=== PATIENT | female | born 1930 | race Caucasian/White ===

== ENCOUNTER 2020-11-15 20:28 | Inpatient (IN) ==
[2020-11-15] MEDS ORDERED: Al Hydrox/Mg Hydrox/Simet LIQ 30 ML UDC PO PRN (22:22)
[2020-11-15] MEDS ORDERED: Morphine 2 MG/ML SYRINGE IV PRN (22:26)
[2020-11-15] MEDS ORDERED: NS 0.9% 1000 ml BAG 1,000 ML IV SCH (22:30)
[2020-11-15 22:53] LABS: Creatine Kinase 1714 U/L (10-223)
[2020-11-15 23:00] LABS: Troponin I 0.06 ng/mL (<0.03)
[2020-11-16] MEDS: Heparin 5000 UNITS/ML 1 mL VIAL SUBCUT SCH ×4 (00:25→20:49)
[2020-11-16 00:37] LABS: Cholesterol 204 mg/dL; HDL Cholesterol 67.7 mg/dL; LDL Cholesterol 125 mg/dL; Triglycerides 55 mg/dL
[2020-11-16 01:13] LABS: Urine Appearance Cloudy; Urine Bilirubin Negative (Negative); Urine Blood 2+ (Negative); Urine Color Yellow; Urine Glucose Negative (Negative); Urine Ketones Trace (Negative); Urine Nitrite Negative (Negative); Urine Protein 1+(30 mg/dL) (Negative); Urine Specific Gravity 1.024 (1.002-1.030); Urine Urobilinogen Negative (Negative)
[2020-11-16 01:24] LABS: Urine Bacteria Absent (Absent); Urine Red Blood Cell 2+(6-10/hpf) (Absent); Urine Squamous Epithelial Cell Present (Absent); Urine White Blood Cell 3+(>20/hpf) (Absent)
[2020-11-16 08:27] LABS: ABS Basophils 0.1 10^3/ul (0-0.2); ABS Lymphocytes 1.2 10^3/ul (1.0-4.8); ABS Monocytes 0.8 10^3/ul (0-0.8); ABS Neutrophils 8.6 10^3/ul (1.5-7.7); Hematocrit 34 % (35-47); Hemoglobin 11.7 g/dL (12.0-16.0); Lymphocyte % 10.9 %; Mean Corpuscular HGB Conc 34 g/dL (31-36); Mean Corpuscular Hemoglobin 32 pg (27-31); Mean Corpuscular Volume 95 fL (80-97); Mean Platelet Volume 8.1 fL (7.4-10.4); Platelet Count 200 10^3/uL (150-450); Red Blood Count 3.63 10^6 /uL (3.70-4.87); Red Cell Distribution Width 14 % (10-15); White Blood Count 10.5 10^3/uL (3.5-10.8)
[2020-11-16 08:44] LABS: ALT 20 U/L (7-52); AST 54 U/L (13-39); Albumin 3.4 g/dL (3.2-5.2); Albumin/Globulin Ratio 1.3 (1-3); Alkaline Phosphatase 71 U/L (35-149); Anion Gap 8 mmol/L (2-11); Blood Urea Nitrogen 27 mg/dL (6-24); CO2 Carbon Dioxide 23 mmol/L (22-32); Calcium 8.6 mg/dL (8.6-10.3); Chloride 105 mmol/L (101-111); EGFR African American 66.5 (>60); Globulin 2.7 g/dL (2-4); Glucose 97 mg/dL (70-100); Potassium 3.6 mmol/L (3.5-5.0); Sodium 136 mmol/L (135-145); Total Protein 6.1 g/dL (6.4-8.9)
[2020-11-16 08:48] LABS: Troponin I 0.05 ng/mL (<0.03)
[2020-11-16 15:08] LABS: Creatine Kinase 1480 U/L (10-223)
[2020-11-17] MEDS: Heparin 5000 UNITS/ML 1 mL VIAL SUBCUT SCH (05:47)
[2020-11-17 06:39] LABS: Hematocrit 36 % (35-47); Mean Corpuscular HGB Conc 34 g/dL (31-36); Mean Corpuscular Hemoglobin 32 pg (27-31); Mean Corpuscular Volume 94 fL (80-97); Mean Platelet Volume 7.9 fL (7.4-10.4); Platelet Count 218 10^3/uL (150-450); Red Blood Count 3.83 10^6 /uL (3.70-4.87); Red Cell Distribution Width 14 % (10-15); White Blood Count 9.5 10^3/uL (3.5-10.8)
[2020-11-17 06:50] LABS: INR 1.23 (0.82-1.09)
[2020-11-17 06:56] LABS: Albumin 3.4 g/dL (3.2-5.2); Albumin/Globulin Ratio 1.2 (1-3); Calcium 8.8 mg/dL (8.6-10.3); EGFR African American 66.5 (>60); Globulin 2.9 g/dL (2-4); Potassium 3.4 mmol/L (3.5-5.0); Total Bilirubin 0.9 mg/dL (0.2-1.0); Total Protein 6.3 g/dL (6.4-8.9)
[2020-11-17] MEDS: Lactated Ringers 1000 ml BAG 1,000 ML IV SCH ×2 (09:47→20:48)
[2020-11-17] MEDS: KCL 20 MEQ/100 ML IVPREMIX 20 MEQ/100 ML BAG IV SCH (10:12)
[2020-11-17] MEDS ORDERED: Propofol 10 MG/ML 20 ML BTL ONE (10:37)
[2020-11-17] MEDS ORDERED: Lidocaine 2% PF 5 ML VIAL ONE (10:38)
[2020-11-17] MEDS ORDERED: fentaNYL 250 mcg/5 ml 50 MCG/ML 5 ml VIAL (250 MCG) ONE (10:40)
[2020-11-17] MEDS ORDERED: Ketamine HCL 50 mg/ml 10 ml VIAL (500 MG) ONE (10:40)
[2020-11-17] MEDS ORDERED: Rocuronium 50 mg VIAL 10 mg/ml 5 ml VIAL (50 mg) ONE ×2 (10:42→13:52)
[2020-11-17] MEDS ORDERED: ceFAZolin 2 GM PREMIX 2 GM/50 ML BAG ONE (11:55)
[2020-11-17] MEDS ORDERED: Vancomycin 1,000 MG VIAL ONE ×2 (11:59→12:06)
[2020-11-17] MEDS ORDERED: Succinylcholine 200 mg VIAL 20 mg/ml 10 ml VIAL (200 mg) ONE (12:11)
[2020-11-17] MEDS ORDERED: Dexamethasone IV 4 MG/ML VIAL 1 ml VIAL ONE ×2 (12:57→14:02)
[2020-11-17] MEDS ORDERED: Bupivacaine 0.5% SDV PF 30ML VIAL ONE (12:57)
[2020-11-17] MEDS ORDERED: Ondansetron 4 mg VIAL 2 MG/ML 2 ml VIAL ONE (14:02)
[2020-11-17] MEDS ORDERED: Labetalol IV 5 MG/ML 20 ml VIAL ONE (14:31)
[2020-11-17] MEDS ORDERED: Acetaminophen IV 1 GM/100ML 100 ML IV ONE (16:10)
[2020-11-17] MEDS ORDERED: HYDROmorphone 1 MG/1 ML SYRINGE ONE (17:11)
[2020-11-17 18:47] LABS: Urine Appearance Cloudy; Urine Bilirubin Negative (Negative); Urine Blood 2+ (Negative); Urine Color Yellow; Urine Glucose Negative (Negative); Urine Ketones 1+ (Negative); Urine Nitrite Negative (Negative); Urine Protein Negative (Negative); Urine Specific Gravity 1.016 (1.002-1.030); Urine Urobilinogen Negative (Negative)
[2020-11-17 18:54] LABS: Urine Bacteria Absent (Absent); Urine Red Blood Cell Trace(0-2/hpf) (Absent); Urine White Blood Cell Absent (Absent)
[2020-11-17 21:43] LABS: Hematocrit 33 % (35-47); Hemoglobin 10.6 g/dL (12.0-16.0)
[2020-11-17] MEDS: ceFAZolin 1 GM X 3 DOSES POST-OP Q8H (AddVan) IVPB SCH (22:03)
[2020-11-18] MEDS: KCL 20 MEQ/100 ML IVPREMIX 20 MEQ/100 ML BAG IV SCH (00:42)
[2020-11-18] MEDS ORDERED: Potassium Chlor 20 meq TAB.ER PO ONE (01:00)
[2020-11-18] MEDS: ceFAZolin 1 GM X 3 DOSES POST-OP Q8H (AddVan) IVPB SCH ×2 (06:12→13:50)
[2020-11-18 06:53] LABS: ABS Lymphocytes 0.9 10^3/ul (1.0-4.8); ABS Monocytes 1.3 10^3/ul (0-0.8); ABS Neutrophils 10.1 10^3/ul (1.5-7.7); Hematocrit 29 % (35-47); Hemoglobin 9.9 g/dL (12.0-16.0); Lymphocyte % 7.4 %; Mean Corpuscular HGB Conc 34 g/dL (31-36); Mean Corpuscular Hemoglobin 32 pg (27-31); Mean Corpuscular Volume 95 fL (80-97); Platelet Count 210 10^3/uL (150-450); Red Cell Distribution Width 13 % (10-15); White Blood Count 12.4 10^3/uL (3.5-10.8)
[2020-11-18 07:07] LABS: C Reactive Protein 170.57 mg/L (<8.01); Calcium 8.1 mg/dL (8.6-10.3); EGFR African American 70.8 (>60); EGFR Non-African American 58.5 (>60); Magnesium 1.7 mg/dL (1.9-2.7); Potassium 4.5 mmol/L (3.5-5.0)
[2020-11-18] MEDS ORDERED: Magnesium Sulfate 2 gm BAG 2 GM/50 ML BAG IVPB ONE (10:14)
[2020-11-18 11:15] LABS: TSH Ultra Thyroid Stim Horm 1.53 mcIU/mL (0.34-5.60)
[2020-11-18] MEDS: Enoxaparin 30 MG/0.3 ML SYR SUBCUT SCH (11:24)
[2020-11-18] MEDS ORDERED: Magnesium Hydroxide LIQ 30 ML UDC PO PRN (12:27)
[2020-11-18] MEDS ORDERED: Polyethylene Glycol 3350 17 GM PACKET PO PRN (12:28)
[2020-11-18] MEDS ORDERED: Lactated Ringers 1000 ml BAG 1,000 ML IV SCH (16:00)
[2020-11-18 18:51] LABS: Hematocrit 33 % (35-47); Hemoglobin 10.5 g/dL (12.0-16.0); Mean Corpuscular HGB Conc 32 g/dL (31-36); Mean Corpuscular Hemoglobin 31 pg (27-31); Mean Corpuscular Volume 98 fL (80-97); Mean Platelet Volume 8.1 fL (7.4-10.4); Platelet Count 175 10^3/uL (150-450); Red Blood Count 3.35 10^6 /uL (3.70-4.87); Red Cell Distribution Width 14 % (10-15)
[2020-11-19] MEDS: Enoxaparin 30 MG/0.3 ML SYR SUBCUT SCH (12:33)
[2020-11-19 19:52] LABS: Hematocrit 24 % (35-47); Hemoglobin 7.9 g/dL (12.0-16.0); Mean Corpuscular HGB Conc 33 g/dL (31-36); Mean Corpuscular Hemoglobin 31 pg (27-31); Mean Corpuscular Volume 95 fL (80-97); Mean Platelet Volume 7.9 fL (7.4-10.4); Platelet Count 198 10^3/uL (150-450); Red Blood Count 2.53 10^6 /uL (3.70-4.87); Red Cell Distribution Width 14 % (10-15); White Blood Count 9.3 10^3/uL (3.5-10.8)
[2020-11-19 20:14] LABS: Calcium 7.5 mg/dL (8.6-10.3); EGFR African American 79.8 (>60); EGFR Non-African American 65.9 (>60); Magnesium 1.9 mg/dL (1.9-2.7); Potassium 4.2 mmol/L (3.5-5.0)
[2020-11-20] MEDS: Enoxaparin 30 MG/0.3 ML SYR SUBCUT SCH (12:47)
[2020-11-20 15:00] LABS: ABS Lymphocytes 0.9 10^3/ul (1.0-4.8); ABS Monocytes 0.6 10^3/ul (0-0.8); ABS Neutrophils 6.8 10^3/ul (1.5-7.7); Eosinophil % 0.5 %; Hematocrit 33 % (35-47); Hemoglobin 11.3 g/dL (12.0-16.0); Lymphocyte % 10.6 %; Mean Corpuscular HGB Conc 34 g/dL (31-36); Mean Corpuscular Hemoglobin 31 pg (27-31); Mean Corpuscular Volume 93 fL (80-97); Mean Platelet Volume 7.8 fL (7.4-10.4); Nucleated Red Blood Cells % 0.1; Platelet Count 225 10^3/uL (150-450); Red Cell Distribution Width 15 % (10-15); White Blood Count 8.3 10^3/uL (3.5-10.8)
[2020-11-20 15:18] LABS: Calcium 8.1 mg/dL (8.6-10.3); EGFR African American 76.6 (>60); EGFR Non-African American 63.3 (>60); Potassium 3.9 mmol/L (3.5-5.0)
[2020-11-20 16:29] LABS: % Iron Saturation 29 % (15-55); Iron 53 ug/dL (50-212); Total Iron Binding Capacity 185 mcg/dL (250-450); Transferrin 132 mg/dL (203-362); Unsaturated Iron Binding < 170 ug/dL
[2020-11-20 16:48] LABS: Ferritin 601.7 ng/mL (11-307)
[2020-11-21 04:49] LABS: ABS Basophils 0.1 10^3/ul (0-0.2); ABS Eosinophils 0.2 10^3/ul (0-0.6); ABS Lymphocytes 1.6 10^3/ul (1.0-4.8); ABS Monocytes 0.8 10^3/ul (0-0.8); ABS Neutrophils 6.5 10^3/ul (1.5-7.7); Hematocrit 32 % (35-47); Hemoglobin 10.8 g/dL (12.0-16.0); Mean Corpuscular HGB Conc 34 g/dL (31-36); Mean Corpuscular Hemoglobin 31 pg (27-31); Mean Corpuscular Volume 93 fL (80-97); Mean Platelet Volume 7.7 fL (7.4-10.4); Platelet Count 254 10^3/uL (150-450); Red Blood Count 3.46 10^6 /uL (3.70-4.87); Red Cell Distribution Width 15 % (10-15); White Blood Count 9.2 10^3/uL (3.5-10.8)
[2020-11-21 05:09] LABS: EGFR African American 75.5 (>60); EGFR Non-African American 62.4 (>60); Potassium 4.2 mmol/L (3.5-5.0)
[2020-11-21] MEDS: Enoxaparin 30 MG/0.3 ML SYR SUBCUT SCH (11:26)
[2020-11-22 05:35] LABS: Hematocrit 33 % (35-47); Mean Platelet Volume 7.7 fL (7.4-10.4); Platelet Count 313 10^3/uL (150-450)
[2020-11-22] MEDS: Enoxaparin 30 MG/0.3 ML SYR SUBCUT SCH (12:21)
[2020-11-23] MEDS: Enoxaparin 30 MG/0.3 ML SYR SUBCUT SCH (11:42)
[2020-11-24] MEDS: Enoxaparin 30 MG/0.3 ML SYR SUBCUT SCH (10:58)
[2020-11-25] MEDS: Enoxaparin 30 MG/0.3 ML SYR SUBCUT SCH (11:42)
[2020-11-26 07:05] VITALS: BP 172/61
== END 2020-11-26 09:11 | DRG 469 ==
LOC: ED 20:28 → MEDTELE 11-16 02:22 → SSU 11-17 11:47
PROVIDERS: ADMIT Hospitalist; ATTEND Internal Medicine

== ENCOUNTER 2021-01-16 13:57 | Inpatient (IN) ==
[2021-01-16] MEDS ORDERED: Morphine 2 MG/ML SYRINGE IV PRN ×2 (14:11→18:12)
[2021-01-16 16:04] LABS: ABS Basophils 0.1 10^3/ul (0-0.2); ABS Lymphocytes 0.8 10^3/ul (1.0-4.8); ABS Monocytes 0.5 10^3/ul (0-0.8); ABS Neutrophils 12.4 10^3/ul (1.5-7.7); Eosinophil % 0.1 %; Hematocrit 34 % (35-47); Hemoglobin 11.1 g/dL (12.0-16.0); Lymphocyte % 5.5 %; Mean Corpuscular HGB Conc 32 g/dL (31-36); Mean Corpuscular Hemoglobin 31 pg (27-31); Mean Corpuscular Volume 95 fL (80-97); Mean Platelet Volume 7.5 fL (7.4-10.4); Platelet Count 285 10^3/uL (150-450); Red Cell Distribution Width 15 % (10-15); White Blood Count 13.7 10^3/uL (3.5-10.8)
[2021-01-16 16:21] LABS: Albumin 3.9 g/dL (3.2-5.2); Albumin/Globulin Ratio 1.2 (1-3); Calcium 9.1 mg/dL (8.6-10.3); EGFR African American 55.6 (>60); EGFR Non-African American 45.9 (>60); Globulin 3.3 g/dL (2-4); Potassium 4.2 mmol/L (3.5-5.0); Total Bilirubin 0.6 mg/dL (0.2-1.0); Total Protein 7.2 g/dL (6.4-8.9)
[2021-01-16 16:26] LABS: Activated Partial Thrombo Time 27.1 seconds (26.0-38.0); INR 1.29 (0.86-1.15)
[2021-01-16] MEDS ORDERED: Lactated Ringers 1000 ml BAG 1,000 ML IV ONE (18:15)
[2021-01-16] MEDS: Morphine 2 MG/ML SYRINGE IV PRN (20:54)
[2021-01-16] MEDS: Heparin 5000 UNITS/ML 1 mL VIAL SUBCUT SCH (23:37)
[2021-01-17 06:06] LABS: ABS Basophils 0.1 10^3/ul (0-0.2); ABS Lymphocytes 1.5 10^3/ul (1.0-4.8); ABS Monocytes 0.7 10^3/ul (0-0.8); ABS Neutrophils 7.2 10^3/ul (1.5-7.7); Hematocrit 29 % (35-47); Hemoglobin 9.6 g/dL (12.0-16.0); Lymphocyte % 15.6 %; Mean Corpuscular HGB Conc 33 g/dL (31-36); Mean Corpuscular Hemoglobin 32 pg (27-31); Mean Corpuscular Volume 95 fL (80-97); Mean Platelet Volume 7.2 fL (7.4-10.4); Platelet Count 242 10^3/uL (150-450); Red Blood Count 3.04 10^6 /uL (3.70-4.87); Red Cell Distribution Width 15 % (10-15); White Blood Count 9.5 10^3/uL (3.5-10.8)
[2021-01-17 06:15] LABS: INR 1.25 (0.86-1.15)
[2021-01-17 06:26] LABS: Calcium 8.3 mg/dL (8.6-10.3); EGFR African American 67.2 (>60); EGFR Non-African American 55.5 (>60); Magnesium 1.9 mg/dL (1.9-2.7)
[2021-01-17] MEDS: Heparin 5000 UNITS/ML 1 mL VIAL SUBCUT SCH ×3 (06:26→21:05)
[2021-01-17] MEDS ORDERED: Calcium (OSCAL) 500 mg TAB PO ONE (12:21)
[2021-01-17] MEDS: Morphine 2 MG/ML SYRINGE IV PRN (14:08)
[2021-01-17 16:03] LABS: Urine Appearance Clear; Urine Bilirubin Negative (Negative); Urine Blood 1+ (Negative); Urine Color Yellow; Urine Glucose Negative (Negative); Urine Ketones Negative (Negative); Urine Nitrite Positive (Negative); Urine Protein Negative (Negative); Urine Specific Gravity 1.008 (1.002-1.030); Urine Urobilinogen Negative (Negative)
[2021-01-17 16:14] LABS: Urine Bacteria Absent (Absent); Urine Red Blood Cell Trace(0-2/hpf) (Absent); Urine Squamous Epithelial Cell Present (Absent); Urine White Blood Cell Trace(0-5/hpf) (Absent)
[2021-01-18] MEDS: Morphine 2 MG/ML SYRINGE IV PRN ×2 (05:27→13:54)
[2021-01-18] MEDS: Heparin 5000 UNITS/ML 1 mL VIAL SUBCUT SCH ×3 (05:27→23:50)
[2021-01-18 06:04] LABS: Hematocrit 29 % (35-47); Hemoglobin 9.7 g/dL (12.0-16.0); Mean Corpuscular HGB Conc 34 g/dL (31-36); Mean Corpuscular Hemoglobin 32 pg (27-31); Mean Corpuscular Volume 94 fL (80-97); Mean Platelet Volume 7.7 fL (7.4-10.4); Platelet Count 232 10^3/uL (150-450); Red Blood Count 3.06 10^6 /uL (3.70-4.87); Red Cell Distribution Width 14 % (10-15); White Blood Count 8.5 10^3/uL (3.5-10.8)
[2021-01-18 06:18] LABS: Calcium 8.1 mg/dL (8.6-10.3); EGFR African American 70.6 (>60); EGFR Non-African American 58.3 (>60); Phosphorus 2.4 mg/dL (2.5-5.0); Potassium 3.5 mmol/L (3.5-5.0)
[2021-01-18 07:24] LABS: Magnesium 1.9 mg/dL (1.9-2.7)
[2021-01-18] MEDS ORDERED: Potassium Chlor 20 meq TAB.ER PO ONE (12:43)
[2021-01-18] MEDS: Potassium & Sodium Phos 250 mg = 1 PACKET PO SCH (23:50)
[2021-01-19 06:19] LABS: Hematocrit 26 % (35-47); Hemoglobin 8.8 g/dL (12.0-16.0); Mean Corpuscular HGB Conc 33 g/dL (31-36); Mean Corpuscular Hemoglobin 31 pg (27-31); Mean Corpuscular Volume 94 fL (80-97); Mean Platelet Volume 7.9 fL (7.4-10.4); Platelet Count 209 10^3/uL (150-450); Red Blood Count 2.79 10^6 /uL (3.70-4.87); Red Cell Distribution Width 15 % (10-15); White Blood Count 7.8 10^3/uL (3.5-10.8)
[2021-01-19 06:24] LABS: INR 1.21 (0.86-1.15)
[2021-01-19 06:32] LABS: Calcium 7.8 mg/dL (8.6-10.3); EGFR African American 70.6 (>60); EGFR Non-African American 58.3 (>60); Magnesium 1.9 mg/dL (1.9-2.7); Potassium 3.8 mmol/L (3.5-5.0)
[2021-01-19] MEDS ORDERED: Magnesium Sulfate IV 1GM/100ML 1 GM/100 ML BAG IV ONE (06:58)
[2021-01-19] MEDS ORDERED: CALCIUM GLUCONATE 1GM/50ML NS 1 GM/50 ML BAG IV ONE (06:58)
[2021-01-19] MEDS: Morphine 2 MG/ML SYRINGE IV PRN ×2 (08:18→21:35)
[2021-01-19] MEDS: Potassium & Sodium Phos 250 mg = 1 PACKET PO SCH (10:04)
[2021-01-19] MEDS ORDERED: Lidocaine 1% w EPI 1:200,000 SDV 30 ML VIAL ONE (11:29)
[2021-01-19] MEDS ORDERED: Bupivacaine 0.5% SDV PF 30ML VIAL ONE ×2 (11:30→12:11)
[2021-01-19] MEDS ORDERED: Vancomycin 1,000 MG VIAL ONE (11:30)
[2021-01-19] MEDS ORDERED: Propofol 10 MG/ML 20 ML BTL ONE ×2 (12:01→14:30)
[2021-01-19] MEDS ORDERED: fentaNYL 100 mcg/2 ml 50 MCG/ML VIAL ONE (12:01)
[2021-01-19] MEDS ORDERED: ceFAZolin 2 GM in NS PREMIX 2 GM/100 ML BAG IVPB ONE (12:29)
[2021-01-19] MEDS ORDERED: Phenylephrine 40 mcg/mL 10mL (400mcg) SYRINGE ONE (13:05)
[2021-01-19] MEDS ORDERED: EPHEDrine (Pressors) 50 MG/ML VIAL ONE (13:19)
[2021-01-19] MEDS ORDERED: Ondansetron 4 mg VIAL 2 MG/ML 2 ml VIAL IV PRN (14:00)
[2021-01-19] MEDS ORDERED: HYDROcodone/ACETAMIN 5/325 mg TAB PO PRN (14:00)
[2021-01-19] MEDS ORDERED: Naloxone 0.4 mg VIAL 0.4 mg/ml 1 ml VIAL IV PRN (14:00)
[2021-01-19] MEDS ORDERED: Metoclopramide 5 MG/ML VIAL (10 mg) IV PRN (14:00)
[2021-01-19] MEDS: Cefepime 1 GM in Dextrose 1 GM/50 ML BAG IV SCH (18:29)
[2021-01-19 20:17] LABS: ABS Lymphocytes 0.7 10^3/ul (1.0-4.8); ABS Monocytes 0.8 10^3/ul (0-0.8); Eosinophil % 0.3 %; Hematocrit 26 % (35-47); Hemoglobin 8.7 g/dL (12.0-16.0); Mean Corpuscular HGB Conc 33 g/dL (31-36); Mean Corpuscular Hemoglobin 32 pg (27-31); Mean Corpuscular Volume 95 fL (80-97); Mean Platelet Volume 7.6 fL (7.4-10.4); Platelet Count 246 10^3/uL (150-450); Red Blood Count 2.77 10^6 /uL (3.70-4.87); Red Cell Distribution Width 15 % (10-15); White Blood Count 11.5 10^3/uL (3.5-10.8)
[2021-01-19] MEDS ORDERED: ceFAZolin 1 GM X 3 DOSES POST-OP Q8H (AddVan) IVPB SCH (21:00)
[2021-01-20] MEDS: Morphine 2 MG/ML SYRINGE IV PRN ×2 (01:07→21:11)
[2021-01-20] MEDS: Cefepime 1 GM in Dextrose 1 GM/50 ML BAG IV SCH ×2 (05:29→17:59)
[2021-01-20] MEDS ORDERED: Buffered Lidocaine 1% SYRIN 1 ml INTRADERM ONE (06:00)
[2021-01-20] MEDS ORDERED: Lactated Ringers 1000 ml BAG 1,000 ML IV SCH (06:00)
[2021-01-20 06:10] LABS: ABS Lymphocytes 1.2 10^3/ul (1.0-4.8); ABS Monocytes 1.2 10^3/ul (0-0.8); ABS Neutrophils 8.6 10^3/ul (1.5-7.7); Eosinophil % 0.1 %; Hematocrit 23 % (35-47); Hemoglobin 7.6 g/dL (12.0-16.0); Lymphocyte % 11.1 %; Mean Corpuscular HGB Conc 33 g/dL (31-36); Mean Corpuscular Hemoglobin 31 pg (27-31); Mean Corpuscular Volume 95 fL (80-97); Mean Platelet Volume 7.8 fL (7.4-10.4); Platelet Count 228 10^3/uL (150-450); Red Blood Count 2.46 10^6 /uL (3.70-4.87); Red Cell Distribution Width 15 % (10-15); White Blood Count 11.1 10^3/uL (3.5-10.8)
[2021-01-20 06:35] LABS: Anion Gap 10 mmol/L (2-11); Blood Urea Nitrogen 23 mg/dL (6-24); CO2 Carbon Dioxide 25 mmol/L (22-32); Calcium 7.8 mg/dL (8.6-10.3); Chloride 103 mmol/L (101-111); EGFR African American 69.7 (>60); EGFR Non-African American 57.6 (>60); Glucose 133 mg/dL (70-100); Magnesium 1.9 mg/dL (1.9-2.7); Potassium 4.6 mmol/L (3.5-5.0); Sodium 138 mmol/L (135-145)
[2021-01-20] MEDS ORDERED: CALCIUM GLUCONATE 1GM/50ML NS 1 GM/50 ML BAG IV ONE (07:02)
[2021-01-20] MEDS ORDERED: Magnesium Sulfate IV 1GM/100ML 1 GM/100 ML BAG IV ONE (07:02)
[2021-01-20 11:01] LABS: Total Iron Binding Capacity 193 mcg/dL (250-450); Transferrin 138 mg/dL (203-362)
[2021-01-20 11:05] LABS: % Iron Saturation 10 % (15-55); Iron < 20 ug/dL (50-212); Unsaturated Iron Binding < 178 ug/dL
[2021-01-20] MEDS: Enoxaparin 40 MG/0.4 ML SYR SUBCUT SCH (12:44)
[2021-01-20 15:02] LABS: ABS Basophils 0.1 10^3/ul (0-0.2); ABS Lymphocytes 1.5 10^3/ul (1.0-4.8); ABS Monocytes 1.3 10^3/ul (0-0.8); ABS Neutrophils 9.5 10^3/ul (1.5-7.7); Eosinophil % 0.3 %; Hematocrit 24 % (35-47); Hemoglobin 7.9 g/dL (12.0-16.0); Lymphocyte % 12.4 %; Mean Corpuscular HGB Conc 33 g/dL (31-36); Mean Corpuscular Hemoglobin 31 pg (27-31); Mean Corpuscular Volume 95 fL (80-97); Mean Platelet Volume 7.6 fL (7.4-10.4); Platelet Count 245 10^3/uL (150-450); Red Blood Count 2.52 10^6 /uL (3.70-4.87); Red Cell Distribution Width 15 % (10-15); White Blood Count 12.4 10^3/uL (3.5-10.8)
[2021-01-21] MEDS: Cefepime 1 GM in Dextrose 1 GM/50 ML BAG IV SCH ×2 (06:14→18:11)
[2021-01-21 07:00] LABS: ABS Basophils 0.1 10^3/ul (0-0.2); ABS Eosinophils 0.1 10^3/ul (0-0.6); ABS Lymphocytes 1.6 10^3/ul (1.0-4.8); Eosinophil % 0.5 %; Hematocrit 22 % (35-47); Hemoglobin 7.3 g/dL (12.0-16.0); Lymphocyte % 14.8 %; Mean Corpuscular HGB Conc 34 g/dL (31-36); Mean Corpuscular Hemoglobin 32 pg (27-31); Mean Corpuscular Volume 94 fL (80-97); Mean Platelet Volume 7.9 fL (7.4-10.4); Platelet Count 235 10^3/uL (150-450); Red Blood Count 2.29 10^6 /uL (3.70-4.87); Red Cell Distribution Width 15 % (10-15); White Blood Count 10.7 10^3/uL (3.5-10.8)
[2021-01-21 07:18] LABS: Calcium 7.7 mg/dL (8.6-10.3); EGFR African American 69.7 (>60); EGFR Non-African American 57.6 (>60); Potassium 4.3 mmol/L (3.5-5.0)
[2021-01-21 07:39] LABS: Ferritin 438.5 ng/mL (11-307)
[2021-01-21] MEDS ORDERED: Calcium Gluconate 2 GM in NS 0.9% 100 ml BAG 100 ML IV ONE (10:00)
[2021-01-21] MEDS: Enoxaparin 40 MG/0.4 ML SYR SUBCUT SCH (13:02)
[2021-01-21] MEDS: Polyethylene Glycol 3350 17 GM PACKET PO SCH ×2 (13:02→23:10)
[2021-01-21] MEDS: Morphine 2 MG/ML SYRINGE IV PRN (14:59)
[2021-01-22] MEDS: Cefepime 1 GM in Dextrose 1 GM/50 ML BAG IV SCH ×2 (05:53→17:44)
[2021-01-22 06:13] LABS: ABS Basophils 0.1 10^3/ul (0-0.2); ABS Eosinophils 0.1 10^3/ul (0-0.6); ABS Lymphocytes 1.7 10^3/ul (1.0-4.8); ABS Monocytes 0.8 10^3/ul (0-0.8); ABS Neutrophils 6.6 10^3/ul (1.5-7.7); Eosinophil % 1.4 %; Hematocrit 20 % (35-47); Hemoglobin 6.8 g/dL (12.0-16.0); Lymphocyte % 18.6 %; Mean Corpuscular HGB Conc 33 g/dL (31-36); Mean Corpuscular Hemoglobin 32 pg (27-31); Mean Corpuscular Volume 94 fL (80-97); Mean Platelet Volume 7.6 fL (7.4-10.4); Nucleated Red Blood Cells % 0.1; Platelet Count 253 10^3/uL (150-450); Red Blood Count 2.15 10^6 /uL (3.70-4.87); Red Cell Distribution Width 15 % (10-15); White Blood Count 9.4 10^3/uL (3.5-10.8)
[2021-01-22 06:29] LABS: Calcium 8.1 mg/dL (8.6-10.3); EGFR African American 76.4 (>60); EGFR Non-African American 63.1 (>60); Magnesium 2.2 mg/dL (1.9-2.7); Potassium 4.2 mmol/L (3.5-5.0)
[2021-01-22] MEDS: Polyethylene Glycol 3350 17 GM PACKET PO SCH ×2 (08:12→22:32)
[2021-01-22 11:01] LABS: Urine Appearance Cloudy; Urine Bilirubin Negative (Negative); Urine Blood 1+ (Negative); Urine Color Yellow; Urine Glucose Negative (Negative); Urine Ketones Negative (Negative); Urine Nitrite Negative (Negative); Urine Protein Negative (Negative); Urine Specific Gravity 1.013 (1.002-1.030); Urine Urobilinogen Negative (Negative)
[2021-01-22 11:06] LABS: Urine Bacteria Absent (Absent); Urine Red Blood Cell 1+(3-5/hpf) (Absent); Urine White Blood Cell 3+(>20/hpf) (Absent)
[2021-01-22 15:07] LABS: ABS Eosinophils 0.2 10^3/ul (0-0.6); ABS Lymphocytes 1.2 10^3/ul (1.0-4.8); ABS Monocytes 0.6 10^3/ul (0-0.8); ABS Neutrophils 6.6 10^3/ul (1.5-7.7); Eosinophil % 2.1 %; Hematocrit 24 % (35-47); Hemoglobin 8.1 g/dL (12.0-16.0); Lymphocyte % 13.8 %; Mean Corpuscular HGB Conc 34 g/dL (31-36); Mean Corpuscular Hemoglobin 31 pg (27-31); Mean Corpuscular Volume 93 fL (80-97); Mean Platelet Volume 7.4 fL (7.4-10.4); Platelet Count 273 10^3/uL (150-450); Red Blood Count 2.58 10^6 /uL (3.70-4.87); Red Cell Distribution Width 15 % (10-15); White Blood Count 8.6 10^3/uL (3.5-10.8)
[2021-01-23 06:11] LABS: ABS Basophils 0.1 10^3/ul (0-0.2); ABS Eosinophils 0.2 10^3/ul (0-0.6); ABS Lymphocytes 1.2 10^3/ul (1.0-4.8); ABS Monocytes 0.7 10^3/ul (0-0.8); ABS Neutrophils 4.6 10^3/ul (1.5-7.7); Eosinophil % 3.5 %; Hematocrit 23 % (35-47); Hemoglobin 7.7 g/dL (12.0-16.0); Lymphocyte % 17.8 %; Mean Corpuscular HGB Conc 33 g/dL (31-36); Mean Corpuscular Hemoglobin 31 pg (27-31); Mean Corpuscular Volume 94 fL (80-97); Mean Platelet Volume 7.5 fL (7.4-10.4); Platelet Count 300 10^3/uL (150-450); Red Blood Count 2.46 10^6 /uL (3.70-4.87); Red Cell Distribution Width 15 % (10-15); White Blood Count 6.9 10^3/uL (3.5-10.8)
[2021-01-23] MEDS: Cefepime 1 GM in Dextrose 1 GM/50 ML BAG IV SCH (06:14)
[2021-01-23 06:34] LABS: Calcium 7.8 mg/dL (8.6-10.3); EGFR African American 71.5 (>60); EGFR Non-African American 59.1 (>60); Magnesium 2.1 mg/dL (1.9-2.7); Phosphorus 3.2 mg/dL (2.5-5.0); Potassium 4.2 mmol/L (3.5-5.0)
[2021-01-23] MEDS: Polyethylene Glycol 3350 17 GM PACKET PO SCH (08:57)
[2021-01-23] MEDS ORDERED: Enoxaparin 40 MG/0.4 ML SYR SUBCUT SCH (09:00)
[2021-01-23] MEDS ORDERED: CALCIUM GLUCONATE 1GM/50ML NS 1 GM/50 ML BAG IV ONE (09:43)
[2021-01-23 11:46] VITALS: BP 130/63
== END 2021-01-23 16:35 | disposition swing bed (61) | DRG 481 ==
LOC: ED 13:57 → SUATTDRO 17:51 → SSU 17:51
PROVIDERS: ADMIT Internal Medicine; ATTEND Internal Medicine